=== PATIENT | male | born 1935 | race Caucasian/White ===

== ENCOUNTER 2019-11-05 19:51 | Inpatient (IN) | payer OTHER ==
[~2019-11-05] VITALS: Ht 188 cm; Wt 82.6 kg
[2019-11-05] MEDS ORDERED: morphine 4 MG/ML inj SYRINge IM ONE (20:35)
[2019-11-05] MEDS ORDERED: normal saline 1000ML IV soln IVB ONE ×2 (22:20→23:25)
[2019-11-05 22:28] LABS: BASOPHILS # (AUTO) 0.1 X10'3 (0-0.2); BASOPHILS % (AUTO) 0.3 % (0-1); EOSINOPHILS % (AUTO) 0.1 % (0-6); HEMATOCRIT 41.1 % (42.0-52.0); LYMPHOCYTES # (AUTO) 0.6 X10'3 (1.1-4.8); LYMPHOCYTES % (AUTO) 2.6 % (21-51); MEAN CORPUSCULAR HEMOGLOBIN 29.6 PG (27.0-31.0); MEAN CORPUSCULAR VOLUME 87.2 FL (78-98); MONOCYTES % (AUTO) 4.7 % (2-12); NEUTROPHILS # (AUTO) 20.6 X10'3 (1.8-7.7); NEUTROPHILS % (AUTO) 92.3 % (42-75); PLATELET COUNT 270 X10'3 (140-440); RED BLOOD COUNT 4.72 X10'6 (4.70-6.10); RED CELL DISTRIBUTION WIDTH 13.6 % (11.5-14.5); WHITE BLOOD COUNT 22.3 X10'3 (4.5-11.0)
--- NOTE | 2019-11-05 22:35 | NUR ---
pt states no urge to void, can't void. Acute urinary retention. States he has been having problems with it for awhile.
[2019-11-05] MEDS ORDERED: CefTRIAXone/D5W-Rocephin 1gm 50 ML IV ONE (22:50)
[2019-11-05 22:54] LABS: ALANINE AMINOTRANSFERASE 25 U/L (12-78); ALBUMIN 3.5 G/DL (3.4-5.0); ALBUMIN/GLOBULIN RATIO 1.1 (1.1-1.5); ALKALINE PHOSPHATASE 50 IU/L (46-116); ANION GAP 7 (8-16); ASPARTATE AMINO TRANSFERASE 23 U/L (10-37); BILIRUBIN,TOTAL 0.6 MG/DL (0.1-1.0); BLOOD UREA NITROGEN 25 MG/DL (7-18); BUN/CREATININE RATIO 23.8 (5.4-32.0); CALCIUM 8.6 MG/DL (8.5-10.1); CHLORIDE 105 MMOL/L (99-107); CREATININE 1.05 MG/DL (0.60-1.10); GLUCOSE 129 MG/DL (70-104); POTASSIUM 3.9 MMOL/L (3.5-5.1); SODIUM 137 MMOL/L (135-145); TOTAL CARBON DIOXIDE 24.8 MMOL/L (24-32); TOTAL PROTEIN 6.8 G/DL (6.4-8.2); TROPONIN I < 0.04 NG/ML (0.0-0.05); eGFR 67 ML/MIN
--- NOTE | 2019-11-05 23:02 | NUR ---
pt has a urethral constricture. I had to use a 10 F and then an 8 F to access urethra and then those were removed and the 16 F introduced using a abdirizak clamp and pushed past constricture and gained easy access to the bladder. Russo catheter draining. Bladder scan stated 530mls. 420 out so far.
--- NOTE | 2019-11-05 23:10 | NUR ---
Dr Dozier made aware of catheter procedure and the constricture.
[2019-11-05 23:30] LABS: CLARITY,URINE SLIGHTLY CLOUDY (Clear); COLOR,URINE YELLOW (Yellow); GLUCOSE, URINE NEGATIVE (Neg); KETONES,URINE TRACE mg/dl (Neg); LEUKOCYTE ESTERASE ,URINE MODERATE (Neg); NITRITES, URINE POSITIVE (Neg); OCCULT BLOOD,URINE MODERATE (Neg); PH,URINE 5.5 (4.8-8.0); PROTEIN,URINE NEGATIVE (Neg); UROBILINOGEN,URINE 0.2 E.U/dL (0.2-1.0)
[2019-11-05 23:32] LABS: UA COLLECTION TYPE FOLEY CATH
[2019-11-05 23:40] LABS: AMORPHOUS URATES 1+; BACTERIA,URINE 2+ /HPF (Neg); MUCUS STRANDS NONE SEEN /LPF (Neg); RBC,URINE 0-2 /HPF (0-2); SQUAMOUS EPITHELIAL CELL,UR NONE SEEN /LPF (FEW); WBC CLUMPS,URINE MANY /HPF (NEGATIVE); WBC,URINE 50-100 /HPF (0-4)
[2019-11-06] MEDS ORDERED: mag hydrox/Alum hydrox/simeth 30ml oral suspension PO PRN (00:10)
[2019-11-06] MEDS ORDERED: magnesium hydroxide 30ml (MOM) UD suspension PO PRN (00:10)
[2019-11-06] MEDS ORDERED: ondansetron/PF 4mg/2ml inj IV PRN (00:10)
[2019-11-06] MEDS ORDERED: acetaminophen 325mg tablet PO PRN ×2 (00:10→09:20)
[2019-11-06] MEDS ORDERED: normal saline 1000ML IV soln IVB ONE (00:15)
[2019-11-06 01:20] VITALS: BP 171/84
--- NOTE | 2019-11-06 01:20 | NUR ---
pt arrived to unit, transferred to bed via slideboard. VSS, in no apparent distress, call light in reach, BLL, 2x rails up, A&O, will continue to monitor
[2019-11-06] MEDS: normal saline 1000ml 1,000 ML IV SCH ×4 (01:30→23:00)
--- NOTE | 2019-11-06 06:05 | NUR ---
Patient in room [facility]. I have received report from ANGELA Long and had the opportunity to ask questions and assume patient care.
[2019-11-06 06:30] VITALS: BP 157/64
[2019-11-06] MEDS: CefTRIAXone 2gm/D5W 50ml 50 ML IV SCH (08:51)
[2019-11-06] MEDS: heparin, porcine 5000 units/ml vial SQ SCH ×2 (08:52→20:16)
[2019-11-06] MEDS ORDERED: HYDROcodone/acetaminophen 5mg/325mg tablet PO PRN (09:20)
[2019-11-06] MEDS: HYDROcodone/acetaminophen 10/325mg tab PO PRN ×3 (09:49→20:16)
[2019-11-06 11:00] VITALS: BP 134/64
[2019-11-06] MEDS ORDERED: hydrALAZINE 20mg/ml inj. IV PRN (13:00)
[2019-11-06] MEDS ORDERED: NO HOME MEDS (13:08)
--- NOTE | 2019-11-06 18:00 | NUR ---
Patient in room [facility]. I have received report from Gia MILLER and had the opportunity to ask questions and assume patient care.
--- NOTE | 2019-11-06 18:35 | NUR ---
Problems reprioritized. Patient report given, questions answered & plan of care reviewed with ANGELA Spaulding.
[2019-11-06] MEDS: lactose-reduced food (Ensure Enlive) - 237ml bottle PO SCH (19:27)
[2019-11-06 20:00] VITALS: BP 151/55
[2019-11-07] VITALS: BP 136/69
[2019-11-07 05:20] LABS: ALBUMIN 2.8 G/DL (3.4-5.0); ANION GAP 7 (8-16); BLOOD UREA NITROGEN 12 MG/DL (7-18); BUN/CREATININE RATIO 14.5 (5.4-32.0); CALCIUM 8.6 MG/DL (8.5-10.1); CHLORIDE 106 MMOL/L (99-107); CREATININE 0.83 MG/DL (0.60-1.10); GLUCOSE 107 MG/DL (70-104); POTASSIUM 3.7 MMOL/L (3.5-5.1); SODIUM 136 MMOL/L (135-145); TOTAL CARBON DIOXIDE 23.2 MMOL/L (24-32); eGFR 88 ML/MIN
[2019-11-07 05:21] LABS: BASOPHILS % (AUTO) 0.4 % (0-1); EOSINOPHILS % (AUTO) 0.3 % (0-6); HEMATOCRIT 38.6 % (42.0-52.0); HEMOGLOBIN 13.3 g/dl (14.0-17.9); LYMPHOCYTES # (AUTO) 0.8 X10'3 (1.1-4.8); LYMPHOCYTES % (AUTO) 7.3 % (21-51); MEAN CORPUSCULAR HEMOGLOBIN 30.2 PG (27.0-31.0); MEAN CORPUSCULAR HGB CONC 34.4 g/dL (33.0-36.5); MEAN CORPUSCULAR VOLUME 87.8 FL (78-98); MEAN PLATELET VOLUME 7.3 FL (7.4-10.4); MONOCYTES # (AUTO) 0.8 X10'3 (0-0.9); MONOCYTES % (AUTO) 7.6 % (2-12); NEUTROPHILS # (AUTO) 8.8 X10'3 (1.8-7.7); NEUTROPHILS % (AUTO) 84.4 % (42-75); PLATELET COUNT 201 X10'3 (140-440); RED BLOOD COUNT 4.39 X10'6 (4.70-6.10); RED CELL DISTRIBUTION WIDTH 13.7 % (11.5-14.5); WHITE BLOOD COUNT 10.5 X10'3 (4.5-11.0)
--- NOTE | 2019-11-07 06:29 | NUR ---
Problems reprioritized. Patient report given, questions answered & plan of care reviewed with Samantha MILLER.
--- NOTE | 2019-11-07 06:47 | NUR ---
Patient in room [facility]. I have received report from jeffrey rogers and had the opportunity to ask questions and assume patient care.
[2019-11-07] MEDS: HYDROcodone/acetaminophen 10/325mg tab PO PRN ×2 (07:55→12:34)
[2019-11-07] MEDS: CefTRIAXone 2gm/D5W 50ml 50 ML IV SCH (07:55)
[2019-11-07] MEDS: heparin, porcine 5000 units/ml vial SQ SCH (07:57)
[2019-11-07] MEDS: lactose-reduced food (Ensure Enlive) - 237ml bottle PO SCH ×2 (07:59→13:37)
[2019-11-07 08:00] VITALS: BP 154/80
[2019-11-07] MEDS ORDERED: SULF1TAB49 PO (10:28)
--- NOTE | 2019-11-07 14:22 | NUR ---
All cares given to patient, seen by Dr Hylton is for discharge if can void following DC of saldana catheter. patient managed to void 100mls. Son tiffany notified patient is clear for DC
--- NOTE | 2019-11-07 15:45 | NUR ---
son tiffany here to pecan picker patient. All DC instructions given to patient and son. DC home via private car to home with son in stable condition.
== END 2019-11-07 15:22 | disposition home or self-care (01) | DRG 872 ==
LOC: ER 19:52 → ED HOLD 11-06 00:09 → SUR 3N 11-06 00:56
PROVIDERS: ADMIT Family Medicine; ATTEND Internal Medicine
DX: A41.9 Sepsis, unspecified organism (principal); N12 Tubulo-interstitial nephritis, not specified as acute or chronic; I10 Essential (primary) hypertension; Z85.038 Personal history of other malignant neoplasm of large intestine; Y93.89 Activity, other specified; Y92.89 Other specified places as the place of occurrence of the external cause; Y99.8 Other external cause status; W01.0XXA Fall on same level from slipping, tripping and stumbling without subsequent striking against object, initial encounter
CPT/HCPCS: 36415; 70450; 71045; 72100; 72125; 74176; 80048; 80053; 81001; 83605; 83880; 84145; 84484; 85025; 87040; 87081; 87088; 93005; 96365; 96372; 97116; 97161; 97530; 99285; G0378; J0696; J1644; J2270; J7030